=== PATIENT | male | born 1985 | race African-American/Black ===

== ENCOUNTER 2021-12-14 15:54 | Emergency (ER) | payer SELFPAY ==
[2021-12-14 16:04] VITALS: BP 156/74; PULSE 71; RESP 16; TEMP 36.9; O2SAT 98
--- NOTE | 2021-12-14 16:13 | ED.LOWEXIN ---
HPI - Extremity Injury (Lower) General Chief Complaint: Extremity Injury, Lower Stated Complaint: left leg pain Time Seen by Provider: 12/14/21 16:13 Source: patient Mode of arrival: ambulatory Limitations: no limitations History of Present Illness HPI Narrative: 36-year-old male presented for complaint of left upper leg pain for 2 weeks. 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 Reports radiating pain to lateral thigh and decreased ROM to knee, limping gait. Denies numbness or weakness. Taking ibuprofen and tylenol. Related Data Allergies Allergy/AdvReac Type Severity Reaction Status Date / Time No Known Allergies Allergy Verified 12/14/21 16:10 Review of Systems Review of Systems: CONSTITUTIONAL: Denies body aches, fever, chills EYES: Denies visual changes ENT: Denies rhinorrhea, congestion CARDIOVASCULAR: Denies chest pain, palpitations, or edema. RESPIRATORY: Denies cough or dyspnea. SKIN: Denies rash Endorses bruising to left thigh MUSCULOSKELETAL: Reports left leg pain NEUROLOGIC: Denies headache, numbness, tingling, or weakness. All systems reviewed & are unremarkable except as noted in HPI and below PMFSH Comments At time of signature, I have reviewed and agree with nursing past medical, surgical, social and family history unless otherwise noted. Please see nursing chart for further information. There is no relevant family history pertinent to the presenting complaint Exam Narrative: GENERAL: Well-appearing CHEST: Speaks in full sentences. No respiratory distress. HEART: Regular rate and rhythm. Normal and equal peripheral pulses. EXTREMITIES: Left anterior thigh with bruising and tenderness with palpation anterior and lateral aspects, mild swelling to distal thigh; Decreased ROM at knee due to pain, walks with limp. Left leg has normal strength and sensation. No open wounds or obvious deformity; pulse palpable and equal bilaterally, skin warm, dry, pink. Capillary refill less than 3 seconds. SKIN: Warm, dry, no rash. NEURO: Alert and oriented x3. PSYCH: Normal mood and affect Course Course Emergency Course: Patient is aware of diagnosis, understands and agrees to treatment plan. Anticipatory guidance given. Patient agrees to follow-up as directed and is aware of reasons to seek care at the emergency department. Portions of this record may have been created with voice recognition software Level of Care: Express Care Visit Vital Signs Vital signs: Vital Signs Temperature 98.5 F 12/14/21 16:04 Pulse Rate 71 12/14/21 16:04 Respiratory Rate 16 12/14/21 16:04 Blood Pressure 156/74 H 12/14/21 16:04 Pulse Oximetry 98 12/14/21 16:04 Oxygen Delivery Room Air 12/14/21 16:04 Temperature 98.5 F 12/14/21 16:04 Pulse Rate 71 12/14/21 16:04 Respiratory Rate 16 12/14/21 16:04 Blood Pressure 156/74 H 12/14/21 16:04 Pulse Oximetry 98 12/14/21 16:04 Oxygen Delivery Room Air 12/14/21 16:04 Reviewed MDM - Extremity Injury (Lower) MDM Narrative Medical decision making narrative: Declined xray due to cost, stating 'it is not the bone.' Pt does not have PCP to f/u, Given the orthopedic list for referral and f/u . v/u. Advised supportive measures, no fighting, and signs/symptoms to go to the ER. Pt is appropriate for outpt treatment and f/u. Differential Diagnosis Differential diagnosis: Likely fracture of femur and other (tendonitis, IT band syndrome, hematoma) Discharge Plan Discharge Clinical Impression: Acute pain of left thigh Patient Disposition: Home, Self-Care Condition: Stable Instructions: Leg Pain (ED) Additional Instructions: Rest. Avoid contact sports, running or excessive walking-- or anything that worsens the symptoms Tylenol 1000mg every 8 hours as needed. You can alternate with ibuprofen
== END 2021-12-14 17:02 | disposition home or self-care (01) ==
PROVIDERS: Emergency Provider Nurse Practitioner Family
DX: M79.652 Pain in left thigh (principal)
CPT/HCPCS: 99213; G0463

== ENCOUNTER 2022-12-22 09:42 | Emergency (ER) | payer SELFPAY ==
--- NOTE | ~2022-12-22 | XR_ITS ---
XR foot RT min 3V DATE: 12/22/2022 10:09 INDICATION: Injury. Pain and swelling. TECHNIQUE: 3 views COMPARISON: None FINDINGS: There is a small erosion at the medial aspect of the head of the first metatarsal bone. Ano ther small erosion is noted at the medial aspect of the base of the proximal phalanx of the fourth di git. No fracture, dislocation, periosteal reaction or bone destruction is noted otherwise. IMPRESSION: Small nonspecific erosions at the medial aspect of the head of the first metatarsal and b ase of proximal phalanx of fourth digit Reviewed, dictated and finalized at location A. IMPRESSION: Small nonspecific erosions at the medial aspect of the head of the first metatarsal and base of proximal phalanx of fourth digit
--- NOTE | ~2022-12-22 | XR_ITS ---
XR ankle RT min 3V DATE: 12/22/2022 10:23 INDICATION: Injury. Ankle pain. TECHNIQUE: 4 views COMPARISON: None FINDINGS: No fracture or dislocation of the ankle or disruption of the ankle mortise. No periosteal r eaction or bone destruction. IMPRESSION: Negative Reviewed, dictated and finalized at location A. IMPRESSION: Negative
[2022-12-22 09:43] VITALS: PULSE 77; RESP 18; TEMP 36.3; O2SAT 100
--- NOTE | 2022-12-22 10:11 | ED.GENADULT ---
HPI - General Adult General Chief complaint: Extremity Injury, Lower Stated complaint: right foot pain Time Seen by Provider: 12/22/22 10:01 Source: patient Mode of arrival: ambulatory Limitations: no limitations History of Present Illness HPI narrative: This is a 37-year-old male who presents to the ED with chief complaint of right foot pain following an injury that occurred yesterday evening. Patient states he was in a kickboxing match last night and kicked someone in the guido. He has pain to the dorsum of the right foot and right ankle. Reports pain with weightbearing. He has not taken anything yet for pain. Denies fevers, chills, numbness, weakness, any further site of pain or injury. Related Data Allergies Allergy/AdvReac Type Severity Reaction Status Date / Time No Known Allergies Allergy Verified 12/22/22 09:54 Review of Systems Review of Systems: All systems as dictated in HPI Exam Narrative: GENERAL: Well-appearing, well-nourished, and in no acute distress. HEAD: Normocephalic, atraumatic. EYES: PERRLA and EOMI. ENT: Nares clear, no rhinorrhea or epistaxis. Mucous membranes moist. Oropharynx without tonsillar hypertrophy exudate or other lesions. NECK: Supple. No adenopathy or masses. CHEST: No respiratory distress. Clear to auscultation. No wheezes rales or rhonchi HEART: Regular rate and rhythm. No murmur heard. Normal peripheral pulses. ABDOMEN: Soft, nontender, nondistended, normal active bowel sounds. MSK: Mild tenderness throughout the right ankle joint and dorsum of the right foot. No gross deformity or bruising. Neurovascularly intact distally. Compartments are soft Left lower extremity is benign. SKIN: Warm, dry, no rash. NEURO: Alert and oriented x3. No focal deficits. PSYCH: Normal mood and affect. Course Vital Signs Vital signs: Vital Signs Temperature 97.4 F L 12/22/22 09:43 Pulse Rate 77 12/22/22 09:43 Respiratory Rate 18 12/22/22 09:43 Pulse Oximetry 100 12/22/22 09:43 Oxygen Delivery Room Air 12/22/22 09:43 Temperature 97.4 F L 12/22/22 09:43 Pulse Rate 68 12/22/22 11:06 Respiratory Rate 15 12/22/22 11:06 Blood Pressure 127/82 12/22/22 11:06 Pulse Oximetry 100 12/22/22 11:06 Oxygen Delivery Room Air 12/22/22 09:43 Medical Decision Making MDM Narrative Medical decision making narrative: This is a 37-year-old male who presents to the ED with chief complaint of right foot and ankle injury that occurred while kickboxing. Vitals are normal. Exam shows mild tenderness to the dorsum of the foot and around the ankle. Mild swelling. X-rays of the foot and ankle show Small nonspecific erosions at the medial aspect of the head of the first metatarsal and base of proximal phalanx of fourth digit. x-ray of the ankle is normal. Discussed this with the patient and we we will give him Michael wrap today. He has crutches for ambulation. Encouraged to remain weightbearing as tolerated. Ortho follow-up given for these erosions. Likely a chronic finding. Low concern for any acute process with these. Pt will be discharged in stable condition. Return precautions given and supportive measures discussed. Pt is understanding and agreeable with plan for discharge and follow-up with orthopedics. Vital Signs Vital Signs: Vital Signs Temperature 97.4 F L 12/22/22 09:43 Pulse Rate 77 12/22/22 09:43 Respiratory Rate 18 12/22/22 09:43 Pulse Oximetry 100 12/22/22 09:43 Oxygen Delivery Room Air 12/22/22 09:43 Temperature 97.4 F L 12/22/22 09:43 Pulse Rate 68 12/22/22 11:06 Respiratory Rate 15 12/22/22 11:06 Blood Pressure 127/82 12/22/22 11:06 Pulse Oximetry 100 12/22/22 11:06 Oxygen Delivery Room Air 12/22/22 09:43 Discharge Plan Discharge Clinical Impression: Injury of foot, right Patient Disposition: Home, Self-Care Condition: Stable Instructions: Antibiotic Form Additional Instructions:
[2022-12-22] MEDS: KETOROLAC 30 MG/ML VIAL (*BKC) IM (11:02)
[2022-12-22] MEDS: HYDROcodone/acetaminophen (*CRX) 5-325 MG TABLET 1 TAB PO (11:02)
[2022-12-22 11:06] VITALS: BP 127/82; PULSE 68; RESP 15; O2SAT 100
== END 2022-12-22 11:15 | disposition home or self-care (01) ==
PROVIDERS: Emergency Provider Physician Assistant
DX: S99.921A Unspecified injury of right foot, initial encounter (principal); W51.XXXA Accidental striking against or bumped into by another person, initial encounter
CPT/HCPCS: 73610; 73630; 96372; 99283; A9270; J1885